=== PATIENT | male | born 1935 | race Caucasian/White ===

== ENCOUNTER 2017-02-28 23:27 | Inpatient (IN) | payer OTHER ==
[~2017-02-28] VITALS: Ht 188 cm; Wt 77.4 kg
[2017-02-28] MEDS ORDERED: ALBUTEROL/IPRATROPIUM 2.5MG/0.5MG, 3 ML ONE (23:45)
[2017-02-28] MEDS ORDERED: PLEASE ENTER ALLERGIES MC SCH ×2 (23:45)
[2017-02-28] MEDS ORDERED: VANCOMYCIN 1,500 MG in SODIUM CHLORIDE 0.9% 250 ML IV ONE (23:45)
[2017-02-28] MEDS ORDERED: ACETAMINOPHEN 650 MG SUPP ONE (23:47)
[2017-02-28 23:56] LABS: HEMATOCRIT 44.5 % (39.2-51.8); HEMOGLOBIN 14.5 g/dL (13.7-18.0); WHITE BLOOD COUNT 11.2 x10^3/uL (3.4-10)
[2017-02-28] MEDS ORDERED: PIPERACILLIN/TAZO/PMX 3.375GM 50 ML ONE (23:57)
[2017-03-01] LABS: ABG COLLECTION SITE RIGHT RADIAL; COLLATERAL CIRCULATION TESTING NORMAL
[2017-03-01] MEDS ORDERED: ACETAMINOPHEN 650 MG SUPP PR PRN
[2017-03-01] MEDS ORDERED: SODIUM CHLORIDE FLUSH 10ML SYR IVF ONE
[2017-03-01] MEDS ORDERED: ALBUTEROL SULFATE 2.5 MG/3 ML NPPB ONE
[2017-03-01] MEDS ORDERED: FENTANYL PF 100 MCG/2ML IVPush ONE
[2017-03-01] MEDS ORDERED: SODIUM CHLORIDE 0.9% 1,000ML IVBOLUS ONE
[2017-03-01] MEDS ORDERED: VANCOMYCIN PER PHARMACY IV ONE
[2017-03-01] MEDS ORDERED: PIPERACILLIN/TAZO/PMX 3.375GM 50 ML IV ONE
[2017-03-01 00:06] LABS: ASPARTATE AMINO TRANSFERASE 14 U/L (15-37); BLOOD UREA NITROGEN 28 mg/dL (7-18)
[2017-03-01] MEDS ORDERED: SODIUM CHLORIDE 0.9%, 500ML IVBOLUS ONE (00:30)
[2017-03-01] MEDS ORDERED: ONDANSETRON 2MG/ML, 2ML IVPush PRN (01:00)
[2017-03-01] MEDS: PIPERACILLIN/TAZO/PMX 3.375GM 50 ML IV SCH ×4 (01:11→19:27)
[2017-03-01 01:25] VITALS: BP 88/52
[2017-03-01] MEDS: ENOXAPARIN 40 MG/0.4 ML SQ SCH (02:16)
[2017-03-01] MEDS: SODIUM CHLORIDE 0.9% 1,000 ML IV SCH ×2 (02:17→11:59)
[2017-03-01 08:12] VITALS: BP 114/59
[2017-03-01] MEDS: morphine SULFATE 10 MG/ML, 1ML IVPush PRN ×4 (08:44→21:25)
[2017-03-01 09:47] LABS: HEMATOCRIT 39.9 % (39.2-51.8); HEMOGLOBIN 13.1 g/dL (13.7-18.0); WHITE BLOOD COUNT 13.6 x10^3/uL (3.4-10)
[2017-03-01 10:06] LABS: BLOOD UREA NITROGEN 41 mg/dL (7-18)
[2017-03-01 10:46] LABS: DIFF TOTAL CELLS COUNTED 100 CELL DIFF
[2017-03-01 10:51] LABS: VERIFY COUNTS? YES
[2017-03-01 12:10] VITALS: BP 145/72
[2017-03-01] MEDS ORDERED: ALBUTEROL SULFATE 2.5 MG/3 ML ONE (13:45)
[2017-03-01] MEDS: ALBUTEROL SULFATE 2.5 MG/3 ML NPPB SCH ×2 (13:48→19:18)
[2017-03-01 14:18] VITALS: BP 136/68
[2017-03-01 17:30] VITALS: BP 157/68
[2017-03-01] MEDS: D5%-0.45% NACL 1,000 ML IV SCH (19:27)
[2017-03-01] MEDS ORDERED: MAGNESIUM SULFATE PMX 2GM/50ML 50 ML IV ONE (19:30)
[2017-03-01 19:38] VITALS: BP 152/68
[2017-03-01] MEDS: LINEZOLID PMX 600MG/300ML 300 ML IV SCH (21:20)
[2017-03-01] MEDS: INSULIN ASPART 100 UNITS/ML, PEN SQ-INSULIN SCH (22:59)
[2017-03-02 00:37] VITALS: BP 130/70
[2017-03-02] MEDS: PIPERACILLIN/TAZO/PMX 3.375GM 50 ML IV SCH ×4 (00:56→18:50)
[2017-03-02] MEDS: ENOXAPARIN 40 MG/0.4 ML SQ SCH (02:54)
[2017-03-02] MEDS: INSULIN ASPART 100 UNITS/ML, PEN SQ-INSULIN SCH ×4 (02:54→21:32)
[2017-03-02] MEDS: ALBUTEROL SULFATE 2.5 MG/3 ML NPPB SCH ×4 (07:14→20:00)
[2017-03-02] MEDS: D5%-0.45% NACL 1,000 ML IV SCH (07:53)
[2017-03-02 08:17] VITALS: BP 166/84
[2017-03-02 09:21] LABS: BLOOD UREA NITROGEN 37 mg/dL (7-18)
[2017-03-02] MEDS: LINEZOLID PMX 600MG/300ML 300 ML IV SCH ×2 (10:48→21:23)
[2017-03-02 12:42] LABS: HEMATOCRIT 36.3 % (39.2-51.8); HEMOGLOBIN 11.8 g/dL (13.7-18.0); WHITE BLOOD COUNT 17.3 x10^3/uL (3.4-10)
[2017-03-02 13:06] LABS: DIFF TOTAL CELLS COUNTED 100 CELL DIFF
[2017-03-02 13:10] LABS: VERIFY COUNTS? YES
[2017-03-02 13:20] VITALS: BP 128/73
[2017-03-02] MEDS ORDERED: POTASSIUM CHLORIDE 40 MEQ in SODIUM CHLORIDE 0.9% 500 ML IV ONE (18:00)
[2017-03-02] MEDS ORDERED: MAGNESIUM SULFATE PMX 2GM/50ML 50 ML IV ONE (18:00)
[2017-03-02 19:29] VITALS: BP 153/86
[2017-03-02] MEDS: POTASSIUM CHLORIDE 20 MEQ in DEXTROSE 5% 1,000 ML IV SCH (19:42)
[2017-03-02] MEDS: morphine SULFATE 10 MG/ML, 1ML IVPush PRN (19:42)
[2017-03-03] MEDS: PIPERACILLIN/TAZO/PMX 3.375GM 50 ML IV SCH ×4 (01:03→19:43)
[2017-03-03 01:11] VITALS: BP 168/81
[2017-03-03] MEDS: morphine SULFATE 10 MG/ML, 1ML IVPush PRN (01:14)
[2017-03-03] MEDS: INSULIN ASPART 100 UNITS/ML, PEN SQ-INSULIN SCH ×4 (03:16→21:23)
[2017-03-03] MEDS: ENOXAPARIN 40 MG/0.4 ML SQ SCH (03:17)
[2017-03-03 06:11] LABS: HEMATOCRIT 36.2 % (39.2-51.8); HEMOGLOBIN 11.8 g/dL (13.7-18.0); WHITE BLOOD COUNT 18.6 x10^3/uL (3.4-10)
[2017-03-03 06:27] LABS: DIFF TOTAL CELLS COUNTED 100 CELL DIFF
[2017-03-03 06:29] LABS: VERIFY COUNTS? YES
[2017-03-03 06:30] LABS: BLOOD UREA NITROGEN 26 mg/dL (7-18)
[2017-03-03 06:37] LABS: POLYCHROMASIA 1+
[2017-03-03] MEDS: ALBUTEROL SULFATE 2.5 MG/3 ML NPPB SCH ×4 (07:10→19:15)
[2017-03-03 07:52] VITALS: BP 190/75
[2017-03-03] MEDS: LINEZOLID PMX 600MG/300ML 300 ML IV SCH ×2 (09:05→21:23)
[2017-03-03] MEDS: POTASSIUM CHLORIDE 20 MEQ in DEXTROSE 5% 1,000 ML IV SCH (09:05)
[2017-03-03] MEDS: POTASSIUM CHLORIDE 40 MEQ in DEXTROSE 5% 1,000 ML IV SCH ×2 (10:00→18:11)
[2017-03-03] MEDS ORDERED: LABETALOL 5MG/ML, 20ML IVPush PRN (10:00)
[2017-03-03] MEDS ORDERED: SODIUM PHOSPHATE 20 MMOL in SODIUM CHLORIDE 0.9% 500 ML IV ONE (10:00)
[2017-03-03] MEDS ORDERED: LOSARTAN 25MG TABLET PO SCH (10:00)
[2017-03-03] MEDS ORDERED: hydrALAzine 20 MG/ML, 1ML IVPush PRN (10:00)
[2017-03-03] MEDS: ENALAPRILAT 1.25 MG/ML, 2ML IV SCH ×2 (11:43→18:09)
[2017-03-03 13:56] VITALS: BP 156/68
[2017-03-03 16:22] LABS: BLOOD UREA NITROGEN 24 mg/dL (7-18)
[2017-03-03 18:57] VITALS: BP 149/79
[2017-03-03] MEDS ORDERED: POTASSIUM CHLORIDE 40 MEQ in SODIUM CHLORIDE 0.9% 500 ML IV ONE (20:30)
[2017-03-04] MEDS: ENALAPRILAT 1.25 MG/ML, 2ML IV SCH ×4 (00:07→20:19)
[2017-03-04 00:22] VITALS: BP 180/66
[2017-03-04 01:45] VITALS: BP 164/77
[2017-03-04] MEDS: PIPERACILLIN/TAZO/PMX 3.375GM 50 ML IV SCH ×3 (02:00→13:00)
[2017-03-04] MEDS: INSULIN ASPART 100 UNITS/ML, PEN SQ-INSULIN SCH ×4 (03:20→20:38)
[2017-03-04] MEDS: ENOXAPARIN 40 MG/0.4 ML SQ SCH (03:21)
[2017-03-04 05:11] LABS: HEMATOCRIT 37.3 % (39.2-51.8); HEMOGLOBIN 12.1 g/dL (13.7-18.0); WHITE BLOOD COUNT 15.8 x10^3/uL (3.4-10)
[2017-03-04] MEDS: POTASSIUM CHLORIDE 40 MEQ in DEXTROSE 5% 1,000 ML IV SCH ×2 (05:30→20:38)
[2017-03-04 05:31] LABS: BLOOD UREA NITROGEN 18 mg/dL (7-18)
[2017-03-04 06:10] LABS: DIFF TOTAL CELLS COUNTED 100 CELL DIFF
[2017-03-04 06:11] LABS: ANISOCYTOSIS 1+; VERIFY COUNTS? YES
[2017-03-04] MEDS: ALBUTEROL SULFATE 2.5 MG/3 ML NPPB SCH ×4 (06:54→19:57)
[2017-03-04 08:00] VITALS: BP 180/66
[2017-03-04] MEDS ORDERED: SODIUM PHOSPHATE 20 MMOL in SODIUM CHLORIDE 0.9% 500 ML IV ONE (09:00)
[2017-03-04] MEDS: LINEZOLID PMX 600MG/300ML 300 ML IV SCH ×2 (10:08→22:19)
[2017-03-04 11:35] VITALS: BP 180/66
[2017-03-04 12:45] VITALS: BP 144/74
[2017-03-04] MEDS: metroNIDAZOLE 500 MG TABLET PO SCH (16:25)
[2017-03-04] MEDS: LACTOBACILLUS CHEW TABLET PO SCH ×2 (16:25→20:38)
[2017-03-04 16:28] LABS: BLOOD UREA NITROGEN 15 mg/dL (7-18)
[2017-03-04 19:23] VITALS: BP 165/90
[2017-03-04] MEDS: PIPERACILLIN/TAZO/PMX 4.5GM 100 ML IV SCH (20:18)
[2017-03-05] MEDS: metroNIDAZOLE 500 MG TABLET PO SCH ×4 (00:23→16:51)
[2017-03-05 00:43] LABS: ABG COLLECTION SITE RIGHT RADIAL; COLLATERAL CIRCULATION TESTING NORMAL
[2017-03-05 00:47] VITALS: BP 160/94
[2017-03-05] MEDS: morphine SULFATE 10 MG/ML, 1ML IVPush PRN ×4 (01:10→23:26)
[2017-03-05] MEDS: ENALAPRILAT 1.25 MG/ML, 2ML IV SCH ×4 (02:13→20:00)
[2017-03-05] MEDS: PIPERACILLIN/TAZO/PMX 4.5GM 100 ML IV SCH ×4 (02:13→20:26)
[2017-03-05] MEDS: ENOXAPARIN 40 MG/0.4 ML SQ SCH (03:39)
[2017-03-05] MEDS: INSULIN ASPART 100 UNITS/ML, PEN SQ-INSULIN SCH ×4 (03:39→21:00)
[2017-03-05 05:00] LABS: HEMATOCRIT 36.2 % (39.2-51.8); HEMOGLOBIN 11.8 g/dL (13.7-18.0); WHITE BLOOD COUNT 12.1 x10^3/uL (3.4-10)
[2017-03-05 05:10] LABS: BLOOD UREA NITROGEN 13 mg/dL (7-18)
[2017-03-05] MEDS: POTASSIUM CHLORIDE 40 MEQ in DEXTROSE 5% 1,000 ML IV SCH ×3 (06:00→20:59)
[2017-03-05] MEDS: ALBUTEROL SULFATE 2.5 MG/3 ML NPPB SCH ×4 (06:51→19:07)
[2017-03-05 08:28] VITALS: BP 172/89
[2017-03-05] MEDS ORDERED: MAGNESIUM SULFATE PMX 2GM/50ML 50 ML IV ONE (09:30)
[2017-03-05] MEDS ORDERED: POTASSIUM PHOSPHATE 44 MEQ in SODIUM CHLORIDE 0.9% 500 ML IV ONE (09:30)
[2017-03-05] MEDS ORDERED: CALCIUM GLUCONATE 9.2 MEQ in SODIUM CHLORIDE 0.9% 100 ML IV ONE (09:30)
[2017-03-05] MEDS ORDERED: FUROSEMIDE 20 MG/2 ML IV ONE (09:30)
[2017-03-05] MEDS: LINEZOLID PMX 600MG/300ML 300 ML IV SCH ×2 (10:32→21:15)
[2017-03-05] MEDS: LACTOBACILLUS CHEW TABLET PO SCH ×4 (10:44→21:15)
[2017-03-05 13:43] VITALS: BP 124/74
[2017-03-05] MEDS ORDERED: POTASSIUM CHLORIDE 40 MEQ in SODIUM CHLORIDE 0.9% 500 ML IV ONE (18:30)
[2017-03-05 19:53] VITALS: BP 102/63
[2017-03-05 19:56] LABS: BLOOD UREA NITROGEN 14 mg/dL (7-18)
[2017-03-05] MEDS ORDERED: morphine SULFATE 125 MG in SODIUM CHLORIDE 0.9% 237.5 ML IV PRN (23:33)
[2017-03-06] MEDS ORDERED: SCOPOLAMINE PATCH, 1.5MG PATCH.TD72 TD PRN
[2017-03-06] MEDS ORDERED: MORPHINE SULFATE 4 MG/ML, 1ML IVPush PRN
== END 2017-03-06 02:30 | disposition expired | DRG 871 ==
LOC: ED 23:30 → EDIP 03-01 00:11 → 3NE 03-01 01:22 → 3NW 03-06 00:23
PROVIDERS: ADMIT Internal Medicine; ATTEND Internal Medicine
DX: A41.9 Sepsis, unspecified organism (principal); E43 Unspecified severe protein-calorie malnutrition; J96.00 Acute respiratory failure, unspecified whether with hypoxia or hypercapnia; J69.0 Pneumonitis due to inhalation of food and vomit; N17.0 Acute kidney failure with tubular necrosis; G93.41 Metabolic encephalopathy; A04.7 Enterocolitis due to Clostridium difficile; E87.0 Hyperosmolality and hypernatremia; F02.81 Dementia in other diseases classified elsewhere, unspecified severity, with behavioral disturbance; G30.9 Alzheimer's disease, unspecified; E11.9 Type 2 diabetes mellitus without complications; R65.20 Severe sepsis without septic shock; Z68.21 Body mass index [BMI] 21.0-21.9, adult; Z88.8 Allergy status to other drugs, medicaments and biological substances; E87.6 Hypokalemia; I25.10 Atherosclerotic heart disease of native coronary artery without angina pectoris; N40.0 Benign prostatic hyperplasia without lower urinary tract symptoms; R13.10 Dysphagia, unspecified; Z99.81 Dependence on supplemental oxygen
CPT/HCPCS: 36415; 36600; 70450; 71010; 80048; 80053; 80061; 82803; 82962; 83605; 83735; 83880; 84100; 85025; 85610; 87040; 87070; 87077; 87186; 87205; 87324; 87493; 93005; 94640; 96361; 96374; 96375; J0610; J1650; J1815; J2020; J2543; J3370; J3480; J7070; J7613; J1940; J2270; J3475; J7030; J7040; J7050